=== PATIENT | female | born 1990 | race Caucasian/White ===

== ENCOUNTER 2018-01-22 16:45 | Emergency (ER) | payer OTHER ==
--- NOTE | 2018-01-22 18:00 | OBHP ---
Datetime: 01/22/2018 17:47 IP Adm Impression: Term, intrauterine ; No Active Labor; Intact Membranes IP Admit Plan: Observation/Evaluation Admit Comment, IP Provider: 27 yo female G1 with an IUP at 39 weeks and presented with c/o of passin g bloody mucus and mild pelvic cramping for the past 2 hours Admitted to adequate FM. Denied LOF or VD FHT's reassuring and reactive Ocassional mild UC's and Cx unchanged from yesterday exam at Dr Yoo's office, per patient Pt reassurred Labor precautions given and verbalized understanding Advised to increase po water intake PMHx and PSHx Negative GBS Neg NKDA Meds PNV Social Neg D/C home in Stable and Satisfactory condition Will F/Up with Dr. Yoo on schedule appointment or as needed Pelvic Type - PN: Adequate Extremities - PN: Normal Abdomen - PN: Normal Back - PN: Normal Breast - PN: Not Done Lungs - PN: Normal Heart - PN: Normal Thyroid - PN: Normal Neurologic - PN: Normal HEENT - PN: Normal General - PN: Normal Presentation-Admit: Vertex FHR - Baseline A Provider: 150 Membranes, Provider: Intact Contraction Comments Provider: Ocassional Gestation - Est Wks by US: 39.0 IP Hx Assessment: PNC records reviewed and WNL EGA AdmitDate IP: 39.0 Vital Signs Provider: Reviewed; Within Normal Limits IP Chief Complaint: Vaginal bleeding NICHD Variability Prov Fetus A: Moderate 6-25bpm NICHD Accel Fetus A IP Provider: 15X15 NICHD Decel Fetus A IP Provider: None Dilatation, Provider: 2 Effacement, Provider: 50 Station, Provider: -3 Genitourinary Exam: Normal DTRs - PN: Normal
--- NOTE | 2018-01-22 18:02 | OBDCSUM ---
Datetime: 01/22/2018 17:58 Discharged to, Provider: Home Follow up at, Provider: Dr. Loretta Enamorado Instr Activity: Normal activity Disch Instr Diet: Regular Discharge Instructions, Provider: Routine instructions given Discharge Diagnosis, Provider: Antepartum Bleeding Discharge Time: 01/22/2018 18:00 Follow up in weeks, Provider: scheduled appt Disch Referrals: None Contraception discussed, Prov: No Discharge Comment, Provider: 27 yo female G1 with an IUP at 39 weeks and presented with c/o of passi ng bloody mucus and mild pelvic cramping for the past 2 hours Admitted to adequate FM. Denied LOF or VD FHT's reassuring and reactive Ocassional mild UC's and Cx unchanged from yesterday exam at Dr Yoo's office, per patient Pt reassurred Labor precautions given and verbalized understanding Advised to increase po water intake PMHx and PSHx Negative GBS Neg NKDA Meds PNV Social Neg D/C home in Stable and Satisfactory condition Will F/Up with Dr. Yoo on schedule appointment or as needed Datetime: 01/22/2018 17:45 Discharged to, Provider: Home Follow up at, Provider: dr loretta Enamorado Instr Activity: Normal activity Disch Instr Diet: Regular Discharge Time: 01/22/2018 17:45 Disch Referrals: None
== END 2018-01-22 17:45 | disposition home or self-care (01) ==
LOC: C.EROB 16:45
DX: O46.93 Antepartum hemorrhage, unspecified, third trimester (principal); Z3A.39 39 weeks gestation of pregnancy

== ENCOUNTER 2018-01-23 18:20 | Inpatient (IN) | payer OTHER ==
--- NOTE | 2018-01-23 18:56 | OBADHP ---
Datetime: 01/23/2018 18:49 Admit Comment, IP Provider: 27 @ 39 WKS PRESENTS TODA WITH C/O RUPUTRED HEMALATHAANSE SINCE 4PM. C /O CONTRACTIONS. PE: +NITRATINE + POOLING, LIGHT MECONIUM. SVE: /-3 LABS: GBS - A/P 20 @ 39 WEEKS ADMITTED FOR RUPTURE OF MEMBRANES 1) VSS: AFBRILE NPO IVF 2) RUPTURED MEMBRANES 3) + NITRAZINE. 4) START PITOCIN 5) GBS - 6) EPIDURAL IF NEEDED. Pelvic Type - PN: Adequate Extremities - PN: Normal Abdomen - PN: Normal Back - PN: Normal Breast - PN: Normal Lungs - PN: Normal Heart - PN: Normal Thyroid - PN: Normal Neurologic - PN: Normal HEENT - PN: Normal General - PN: Normal FHR - Baseline A Provider: 140 Amniotic Fluid Color, Provider: Meconium, Light Membranes, Provider: Ruptured Contraction Comments Provider: [id number] Gestation - Est Wks by US: 39.0 Pool Provider: Positive Nitrazine Provider: Positive IP Hx Assessment: The History has been Reviewed and is Current Vital Signs Provider: Reviewed IP Chief Complaint: Uterine contractions; Suspected ruptured membranes NICHD Variability Prov Fetus A: Moderate 6-25bpm NICHD Accel Fetus A IP Provider: 15X15 NICHD Decel Fetus A IP Provider: None Dilatation, Provider: 2 Effacement, Provider: 30 Station, Provider: -3 Genitourinary Exam: Normal DTRs - PN: Normal EGA AdmitDate IP: 39.1 IP Adm Impression: Term, intrauterine ; Ruptured Membranes IP Admit Plan: Admit to unit; Initiate labor protocol Datetime: 01/22/2018 17:47 Presentation-Admit: Vertex
[2018-01-23] MEDS ORDERED: Oxytocin 30 UNIT 30 UNITS/500 ML BAG IV ONE ×4 (19:00→22:32)
[2018-01-23] MEDS ORDERED: Lactated Ringer's 1,000 ML IV ONE (19:00)
[2018-01-23] MEDS ORDERED: Lactated Ringer's 1,000 ML IV SCH (19:00)
[2018-01-23 19:46] LABS: BASO % 0.2 % (0.0-2.0); EOS # 0.1 K/uL (0.0-0.7); EOS % 0.7 % (0.0-4.0); HEMOGLOBIN 11.8 g/dL (11.0-16.0); LYMPH # 2.1 K/uL (1.0-4.3); LYMPH % 21.1 % (20.0-40.0); MEAN CELL VOLUME 83.2 fL (81.0-99.0); MEAN CORPUSCULAR HGB CONC 33.7 g/dL (33.0-37.0); MEAN PLATELET VOLUME 9.7 fL (7.2-11.7); MONO # 0.8 K/uL (0.0-0.8); MONO % 7.9 % (0.0-10.0); NEUT % 70.1 % (50.0-75.0); NRBC % 0.1 % (0.0-2.0); RBC 4.2 Mil/uL (3.80-5.20); RED CELL DISTRIBUTION WIDTH 15.3 % (11.5-14.5)
[2018-01-23 20:30] LABS: RAPID PLASMA REAGIN NONREACTIVE (NONREACTIVE)
[2018-01-23] MEDS ORDERED: Nalbuphine HCL 10 mg/ml Ampule IVP ONE (21:28)
[2018-01-23] MEDS ORDERED: Nalbuphine HCL 10 mg/ml Ampule ONE (22:00)
--- NOTE | 2018-01-24 01:45 | OBPN ---
Datetime: 01/24/2018 01:35 IP Progress Impression: Normal progression of labor; Reassuring heart rate IP Progress Plan: Continue present management Membranes, Provider: Ruptured Amniotic Fluid Color, Provider: Meconium, Light FHR - Baseline A Provider: 140 IP Fetus A Comments: severe variables noted down to the 90s. Oxytocin discontinued. Pt was checked a nd was 4/90/0. PT was repositioned and is now sitting upright. Pt requesting Epidural. Gestation - Est Wks by US: 39.0 Weight - Estimated: 7lba Presentation-Admit: Vertex IP Progress Note Comment: I was called bc the patient wanted an epidural. Pt was noted to have sever e variables down to the 90s. Oxytocin was discontinued. Pt was repositioned and scalp was stimulated . The heart tones became reactive. Vital Signs Provider: Reviewed NICHD Accel Fetus A IP Provider: 15X15 FHR Category Provider Fetus A: Category I NICHD Variability Prov Fetus A: Moderate 6-25bpm Dilatation, Provider: 4 Effacement, Provider: 90 Station, Provider: 0 Datetime: 01/23/2018 18:49 Pool Provider: Positive Nitrazine Provider: Positive Contraction Comments Provider: [email or web address] NICHD Decel Fetus A IP Provider: None
[2018-01-24] MEDS ORDERED: Bupivacaine HCl/FentaNYL Cit 100 ML EPI ONE (02:04)
--- NOTE | 2018-01-24 05:51 | OBPN ---
Datetime: 01/24/2018 05:45 IP Progress Impression: Chorioamnionitis IP Progress Plan: Continue present management FHR - Baseline A Provider: 165 IP Fetus A Comments: TACHYCARDIA 160S Gestation - Est Wks by US: 39.0 Presentation-Admit: Vertex IP Progress Note Comment: PTS WITH TACHYCARDIA AND MATERNAL TACHYCARDIA. PLAN: 1) CHORIO: START IV ANTIBIOTICS 2) IVF BOLUS: 500CC STARTED. 3) IV ANTIBIOTICS: AMP/GENT STARTED. NICHD Accel Fetus A IP Provider: 15X15 FHR Category Provider Fetus A: Category II NICHD Variability Prov Fetus A: Moderate 6-25bpm NICHD Decel Fetus A IP Provider: None
[2018-01-24] MEDS ORDERED: AMPicillin 1 GM in Sodium Chloride 0.9% 100 ML IVPB SCH (06:00)
[2018-01-24] MEDS ORDERED: Oxytocin 20 units in LR 2,000 ML IV ONE (06:44)
[2018-01-24] MEDS ORDERED: Benzocaine/Menthol 20%-0.5% Topical Spray (60 ml) TOP PRN (08:20)
[2018-01-24] MEDS ORDERED: Oxycodone/Acetaminophen 5/325 mg Tab PO PRN ×2 (08:20)
--- NOTE | 2018-01-24 08:37 | OBDS ---
DELIVERY PERSONNEL Delivery Doctor: DR Murphy Chief Lending Officer: Liza Hall RN Anesthesiologist: dr bauer MATERNAL INFORMATION Delivery Anesthesia: Epidural Medications in Delivery: pitocin 20 Estimated Blood Loss (ml): 200 Placenta Cultured: Yes Maternal Complications: Chorioamnionitis; Maternal Fever; Other Other Maternal Complications: fever Provider Comments: of a viable female from FANI position and over an intact perineum. Apg ars 8_9 and BW 6 lbs. 2nd degree midline laceration repaired with 2-0 Vicryl . EBL 200 mls Placenta sent for culture, Cord blood and cord pH. Pt and both tolerated the procedure well and remained in LDR in S_S condition. LABOR SUMMARY EDC: 01/29/2018 00:00 No. Babies in Womb: 0 Attempted: No Labor Anesthesia: None LABOR INFORMATION Reason for Induction: Not Applicable Onset of Labor: 01/23/2018 16:30 Complete Dilatation: 01/24/2018 06:31 Cervical Ripening Agents: [place] Balloon Oxytocin: Augmentation Group B Beta Strep: Negative Antibiotics # of Doses: 2 Antibiotics Time of Last Dose: 6:30 Steroids Given: None Reason Steroids Not Administered: Not Applicable MEMBRANES Membranes Rupture Method: Spontaneous Rupture of Membranes: 01/23/2018 16:00 Length of Rupture (hrs): 15.72 Amniotic Fluid Color: Light Meconium Amniotic Fluid Amount: Scant Amniotic Fluid Odor: Normal STAGES OF LABOR Stage 1 hrs: 14 Stage 1 min: 1 Stage 2 hrs: 1 Stage 2 min: 12 Stage 3 hrs: 0 Stage 3 min: 2 Total Time in Labor hrs: 15 Total Time in Labor min: 15 VAGINAL DELIVERY Episiotomy: None Laceration Extension: Second Degree Laceration Type: Perineal Laceration Repair: Yes Laceration Repair Note: 2-0 Vicryl suture utilized for repair and done without complications. Pt moises erated well Initial Vag Sponge Count: 10 Final Vag Sponge Count: 10 Initial Vag Sharps Count: 1 Final Vag Sharps Count: 1 Sponge Count Correct: Yes Sharps Count Correct: Yes BABY A INFORMATION Infant Delivery Date/Time: 01/24/2018 07:43 Method of Delivery: Vaginal Born in Route : No : N/A Forceps: N/A Vacuum Extraction: N/A Shoulder Dystocia : No SHOULDER DYSTOCIA BABY A Delivery Date/Time: 01/24/2018 07:43 PRESENTATION/POSITION BABY A Presentation: Cephalic Cephalic Presentation: Vertex Vertex Position: Right Occipital Anterior Breech Presentation: N/A PLACENTA INFORMATION BABY A Placenta Delivery Time : 01/24/2018 07:45 Placenta Method of Delivery: Spontaneous Placenta Status: Delivered SCORES BABY A Heart Rate 1 min: >100 bpm Resp Effort 1 min: Slow, Irregular Reflex Irritability 1 min: Cough or Sneeze or Pulls Away Muscle Tone 1 min: Active Motion Color 1 min: Body [place], Extremities Blue Resuscitation Effort 1 min: Tactile Stimulation; Oxygen SCORE 1 MIN: 8 Heart Rate 5 min: >100 bpm Resp Effort 5 min: Good Cry Reflex Irritability 5 min: Cough or Sneeze or Pulls Away Muscle Tone 5 min: Active Motion Color 5 min: Body [place], Extremities Blue SCORE 5 MIN: 9 INFANT INFORMATION BABY A Gestational Age at Delivery: 39.2 Gestational Status: Term Infant Outcome : Liveborn Infant Condition : Stable Infant Sex: Female IDENTIFICATION/MEDS BABY A ID Band Number: [id number] ID Band Location: Left Leg; Left Arm Sensor Applied: Yes Sensor Number: [id number] Sensor Location : Cord Clamp WEIGHT/LENGTH BABY A Infant Birthweight (gms): 2730 Weight (lb): 6 Weight (oz): 0 Length Inches: 18.00 Length cms: 45.7 CORD INFORMATION BABY A Nuchal Cord : Around Neck x1, Loose Cord Blood Taken: Yes Infant Suction: Mouth; Nose ASSESSMENT BABY A Infant Complications: None Physical Findings at Delivery: Within Normal Limits Respirations: Appears Normal [employer] Brm Developer/ALS Called : No Care By: rufino Transferred To: Remains with Mother
[2018-01-24] MEDS: Hydrocortisone 2.5% Rectal Cream(30 gm) PR SCH ×2 (15:41→22:08)
[2018-01-24] MEDS: Multiple Vitamins Tab PO SCH (17:54)
[2018-01-25] MEDS: Hydrocortisone 2.5% Rectal Cream(30 gm) PR SCH ×3 (06:22→22:26)
[2018-01-25 08:25] LABS: BASO % 0.1 % (0.0-2.0); EOS # 0.1 K/uL (0.0-0.7); EOS % 0.4 % (0.0-4.0); LYMPH % 15.6 % (20.0-40.0); MEAN CELL VOLUME 84.5 fL (81.0-99.0); MEAN CORPUSCULAR HEMOGLOBIN 27.1 pg (27.0-31.0); MEAN CORPUSCULAR HGB CONC 32.1 g/dL (33.0-37.0); MEAN PLATELET VOLUME 9.5 fL (7.2-11.7); MONO # 0.9 K/uL (0.0-0.8); MONO % 6.6 % (0.0-10.0); NEUT % 77.3 % (50.0-75.0); RBC 3.55 Mil/uL (3.80-5.20)
[2018-01-25 08:27] LABS: HEMOGLOBIN 9.6 g/dL (11.0-16.0)
[2018-01-25] MEDS: Multiple Vitamins Tab PO SCH (10:44)
[2018-01-25] MEDS ORDERED: Lubricant Eye Drops UD OU SCH (22:00)
[2018-01-26] MEDS: Hydrocortisone 2.5% Rectal Cream(30 gm) PR SCH (08:00)
[2018-01-26 08:31] VITALS: BP 97/62; O2SAT 98
[2018-01-26] MEDS: Multiple Vitamins Tab PO SCH (09:50)
[2018-01-26 11:50] LABS: BASO % 0.1 % (0.0-2.0); EOS # 0.1 K/uL (0.0-0.7); EOS % 1.4 % (0.0-4.0); HEMOGLOBIN 10.1 g/dL (11.0-16.0); LYMPH # 1.8 K/uL (1.0-4.3); LYMPH % 16.9 % (20.0-40.0); MEAN CELL VOLUME 83.8 fL (81.0-99.0); MEAN CORPUSCULAR HEMOGLOBIN 28.3 pg (27.0-31.0); MEAN CORPUSCULAR HGB CONC 33.7 g/dL (33.0-37.0); MEAN PLATELET VOLUME 9.1 fL (7.2-11.7); MONO # 0.3 K/uL (0.0-0.8); NEUT # 8.2 K/uL (1.8-7.0); NEUT % 78.6 % (50.0-75.0); RBC 3.58 Mil/uL (3.80-5.20); WHITE BLOOD COUNT 10.5 K/uL (4.8-10.8)
--- NOTE | 2018-01-26 12:42 | OBDCSUM ---
Datetime: 01/26/2018 12:38 Discharged to, Provider: Home Follow up at, Provider: Dr Yoo Disch Instr Activity: Normal activity Disch Instr Diet: Regular Discharge Instructions, Provider: Routine instructions given Discharge Diagnosis, Provider: Term Delivered Discharge Time: 01/26/2018 12:38 Follow up in weeks, Provider: 6 weeks Disch Referrals: None Contraception discussed, Prov: Yes Disch Activity Restrictions: No sexual activity; Nothing in vagina - [place], tampons, douche Discharge Comment, Provider: precuatin given Contraception after Delivery: Not Planning to Use
--- NOTE | 2018-01-26 12:42 | OBPPN ---
Datetime: 01/26/2018 07:47 PP Pain Prov: Within normal limits PP Nausea Prov: Denies PP Flatus Prov: Yes PP BM Prov: Yes PP Heart Prov: Normal PP Lungs Prov: Normal PP Abdomen/Uterus Prov: Normal PP Lochia Prov: Normal PP Extremities Prov: Normal PP C/S Incision Prov: Not Applicable PP Progress Prov: Normal PP Comments Phys Exam Prov: fundus: firm at 2 fingerbreaths below umbilicus perienuml healing well extremities: no edema or erythema PP Impression Prov: Normal progression PP Plan Prov: Discharge PP Progress Note Prov: PGY2- Progress Note for Dr. Yoo Patient seen and examined at bedside. Patient says her pain is mild and that Motrin helps. Patient is and bottle feeding. Patient has had a bowel movement and is urinating normally. Pat heathernt says her bleeding is slightly more than her normal period. Patient denies any nausea or vomiting and is tolerating her diet well. 27 y/o s/p PPD #2 1. motrin for pain control 2. encourage ambulation and 3. discharge home today pending repeat cbc results Kalyn Saleh, PGY2 Discussed with Dr. Yoo agree iwth above pt seen and examied repet cbc reivwed dc home rto 6 wekes Vital Signs Provider PP: Reviewed Datetime: 01/25/2018 14:31 PP Breasts Prov: Not Done PP Vulva/Perineum Prov: Not Done PP CVA Tenderness Prov: Normal IP PP Procedures: None
--- NOTE | 2018-01-26 15:56 | OBDS ---
DELIVERY PERSONNEL Delivery Doctor: DR Murphy Scrap Separator: Liza Hall RN Anesthesiologist: dr bauer MATERNAL INFORMATION Delivery Anesthesia: Epidural Medications in Delivery: pitocin 20 Estimated Blood Loss (ml): 200 Placenta Cultured: Yes Maternal Complications: Chorioamnionitis; Maternal Fever; Other Other Maternal Complications: fever Provider Comments: of a viable female from FANI position and over an intact perineum and after transected a tigh nuchal cord. Apgars 8_9 and BW 6 lbs. 2nd degree midline laceration repaired with 2-0 Vicryl . EBL 200 mls Placenta sent for culture, Cord blood and cord pH. Pt and both tolerated the procedure well and remained in LDR in S_S condition. LABOR SUMMARY EDC: 01/29/2018 00:00 EDC: 01/29/2018 00:00 No. Babies in Womb: 0 Attempted: No Labor Anesthesia: None LABOR INFORMATION Reason for Induction: Not Applicable Onset of Labor: 01/23/2018 16:30 Complete Dilatation: 01/24/2018 06:31 Cervical Ripening Agents: [place] Balloon Oxytocin: Augmentation Group B Beta Strep: Negative Antibiotics # of Doses: 2 Antibiotics Time of Last Dose: 6:30 Steroids Given: None Reason Steroids Not Administered: Not Applicable MEMBRANES Membranes Rupture Method: Spontaneous Rupture of Membranes: 01/23/2018 16:00 Length of Rupture (hrs): 15.72 Amniotic Fluid Color: Light Meconium Amniotic Fluid Amount: Scant Amniotic Fluid Odor: Normal STAGES OF LABOR Stage 1 hrs: 14 Stage 1 min: 1 Stage 2 hrs: 1 Stage 2 min: 12 Stage 3 hrs: 0 Stage 3 min: 2 Total Time in Labor hrs: 15 Total Time in Labor min: 15 VAGINAL DELIVERY Episiotomy: None Laceration Extension: Second Degree Laceration Type: Perineal Laceration Repair: Yes Laceration Repair Note: 2-0 Vicryl suture utilized for repair and done without complications. Pt moises erated well Initial Vag Sponge Count: 10 Final Vag Sponge Count: 10 Initial Vag Sharps Count: 1 Final Vag Sharps Count: 1 Sponge Count Correct: Yes Sharps Count Correct: Yes BABY A INFORMATION Delivery Date/Time: 01/24/2018 07:43 Method of Delivery: Vaginal Born in Route : No : N/A Forceps: N/A Vacuum Extraction: N/A Shoulder Dystocia : No SHOULDER DYSTOCIA BABY A Delivery Date/Time: 01/24/2018 07:43 PRESENTATION/POSITION BABY A Presentation: Cephalic Cephalic Presentation: Vertex Vertex Position: Right Occipital Anterior Breech Presentation: N/A PLACENTA INFORMATION BABY A Placenta Delivery Time : 01/24/2018 07:45 Placenta Method of Delivery: Spontaneous Placenta Status: Delivered SCORES BABY A Heart Rate 1 min: >100 bpm Resp Effort 1 min: Slow, Irregular Reflex Irritability 1 min: Cough or Sneeze or Pulls Away Muscle Tone 1 min: Active Motion Color 1 min: Body [place], Extremities Blue Resuscitation Effort 1 min: Tactile Stimulation; Oxygen SCORE 1 MIN: 8 Heart Rate 5 min: >100 bpm Resp Effort 5 min: Good Cry Reflex Irritability 5 min: Cough or Sneeze or Pulls Away Muscle Tone 5 min: Active Motion Color 5 min: Body [place], Extremities Blue SCORE 5 MIN: 9 INFANT INFORMATION BABY A Gestational Age at Delivery: 39.2 Gestational Status: Term Outcome : Liveborn Infant Condition : Stable Infant Sex: Female IDENTIFICATION/MEDS BABY A ID Band Number: [id number] ID Band Location: Left Leg; Left Arm Sensor Applied: Yes Sensor Number: [id number] Sensor Location : Cord Clamp WEIGHT/LENGTH BABY A Birthweight (gms): 2730 Infant Weight (lb): 6 Infant Weight (oz): 0 Infant Length Inches: 18.00 Infant Length cms: 45.7 CORD INFORMATION BABY A Nuchal Cord : Around Neck x1, Loose Cord Blood Taken: Yes Infant Suction: Mouth; Nose ASSESSMENT BABY A Infant Complications: None Physical Findings at Delivery: Within Normal Limits Infant Respirations: Appears Normal Director Inbound Sales/ALS Called : No Care By: rufino Transferred To: Remains with Mother
[2018-01-26 20:19] VITALS: PULSE 88; RESP 20; TEMP 98.6
== END 2018-01-26 14:45 | disposition home or self-care (01) | DRG 774 ==
LOC: C.EROB 18:20 → C.4LDOR 18:58 → C.4D 21:54 → C.4M 01-24 10:30
PROVIDERS: ADMIT Obstetrics & Gynecology; ATTEND Obstetrics & Gynecology
PROC: 10E0XZZ Delivery of Products of Conception, External Approach (ICD-10-PCS; principal; 2018-01-24)
PROC: 0KQM0ZZ Repair Perineum Muscle, Open Approach (ICD-10-PCS; 2018-01-24)
DX: O41.1230 Chorioamnionitis, third trimester, not applicable or unspecified (principal); O75.2 Pyrexia during labor, not elsewhere classified; O76 Abnormality in fetal heart rate and rhythm complicating labor and delivery; O69.81X0 Labor and delivery complicated by cord around neck, without compression, not applicable or unspecified; O70.1 Second degree perineal laceration during delivery; Z3A.39 39 weeks gestation of pregnancy; Z37.0 Single live birth